=== PATIENT | female | born 1950 | race Hispanic/Latino ===

== ENCOUNTER 2024-09-04 12:05 | Inpatient (IN) | payer MEDICARE ==
[~2024-09-04] VITALS: Ht 149.9 cm; Wt 62.8 kg
[2024-09-04] VITALS (8 sets, daily range): BP systolic 113–139; BP diastolic 45–91; PULSE 74–89; RESP 15–20; TEMP 97.3–98.8; O2SAT 100
[~2024-09-04 12:05] MED LIST: ALENDRONATE SOD70 MG PO; ASPIRIN CHEW81 MG PO; AUGMENTIN 500-1 EACH PO; BENZONATATE100 MG PO; CARVEDILOL3.125 MG PO; CRESTOR10 MG PO; DOXYCYCLINE HY100 MG PO; FUROSEMIDE40 MG PO; GLIMEPIRIDE2 MG PO; NIFEDIPINE ER30 M1 PO; SENTRY SENIOR1 EAC1
[2024-09-04 13:32] LABS: BASOPHILS # (AUTO) 0.1 (0.0-0.1); EOSINOPHILS # (AUTO) 0.1 (0.0-0.4); EOSINOPHILS % 0.8 % (0.0-6.0); HEMATOCRIT 33.8 % (34.2-44.1); HEMOGLOBIN 10.6 g/dL (12.0-16.0); LYMPHOCYTES # (AUTO) 0.8 (1.0-3.2); LYMPHOCYTES % 10.7 % (18.0-39.1); MEAN CORPUSCULAR HEMOGLOBIN 32.8 pg (28-32); MEAN CORPUSCULAR HGB CONC 31.4 g/dL (31-35); MEAN CORPUSCULAR VOLUME 104.6 fL (81-99); MONOCYTES # (AUTO) 0.5 (0.2-0.8); MONOCYTES % 6.7 % (4.4-11.3); NEUTROPHILS # (AUTO) 5.9 (2.1-6.9); NEUTROPHILS % 80.4 % (38.7-80.0); PLATELET COUNT 180 x10e3/uL (140-360); RED BLOOD COUNT 3.23 x10e6/uL (3.6-5.1); RED CELL DISTRIBUTION WIDTH 14.5 % (11.7-14.4); WHITE BLOOD COUNT 7.28 x10e3/uL (4.8-10.8)
[2024-09-04 13:48] LABS: INR 1.06; PROTHROMBIN TIME 14.4 seconds (11.9-14.5)
[2024-09-04 13:49] LABS: PARTIAL THROMBOPLASTIN TIME 28.6 seconds (23.8-35.5)
[2024-09-04 13:58] LABS: ALBUMIN 3.6 g/dL (3.5-5.0); ANION GAP 22.7 mmol/L (8-16); BILIRUBIN,TOTAL 0.8 mg/dL (0.2-1.2); CALCIUM 8.7 mg/dL (8.4-10.2); CREATININE, SERUM 8.13 mg/dL (0.57-1.11); TOTAL PROTEIN 7.3 g/dL (6.5-8.1)
[2024-09-04 14:00] LABS: POTASSIUM 5.7 mmol/L (3.5-5.1)
[2024-09-04 14:07] LABS: TROPONIN I 0.043 ng/mL (0-0.300)
[2024-09-04] MEDS: CALCIUM GLUC 1 G/50 ML NACL 50 ML IV ONE (15:13)
[2024-09-04] MEDS: SODIUM BICARBONATE 8.4% INJ 50 ML SYR IV STA (15:13)
[2024-09-04] MEDS: DEXTROSE 50% SYRINGE 50 ML IV STA (15:13)
[2024-09-04] MEDS ORDERED: Morphine 4mg INJECTION 4 MG/ML INJ IV PRN (15:15)
[2024-09-04] MEDS ORDERED: ONDANSETRON HCL INJ 2MG/ML 2ML 2 MG/ML VIAL IV PRN (15:15)
[2024-09-04] MEDS: INSULIN REGULAR, HUMAN 100 UNIT/1 ML IV ONE (15:16)
[2024-09-04] MEDS ORDERED: MULTI-VITAMIN1 EACH PO (16:58)
[2024-09-04] MEDS: SODIUM CHLORIDE 0.9% 1000ML 2,000 ML ONE (20:01)
[2024-09-04] MEDS ORDERED: HYDROCODONE/APAP 7.5MG-325MG 1 EA TAB PO PRN (23:45)
[2024-09-04] MEDS ORDERED: HYDRALAZINE HCL 20 MG/ML VIAL IV PRN (23:45)
[2024-09-05] VITALS (10 sets, daily range): BP systolic 104–137; BP diastolic 49–57; PULSE 76–88; RESP 16–18; TEMP 97.7–98.8; O2SAT 97–100
[2024-09-05] MEDS: CARVEDILOL 3.125 MG TAB PO SCH (00:08)
[2024-09-05] MEDS: SIMVASTATIN 20 MG TAB PO SCH (00:09)
[2024-09-05] MEDS: NIFEDIPINE CR 30 MG TAB PO SCH (00:09)
[2024-09-05 07:00] LABS: BASOPHILS # (AUTO) 0.1 (0.0-0.1); BASOPHILS % 0.9 % (0.0-1.0); EOSINOPHILS # (AUTO) 0.2 (0.0-0.4); EOSINOPHILS % 2.6 % (0.0-6.0); HEMATOCRIT 29.9 % (34.2-44.1); HEMOGLOBIN 9.4 g/dL (12.0-16.0); LYMPHOCYTES # (AUTO) 1.2 (1.0-3.2); LYMPHOCYTES % 19.8 % (18.0-39.1); MEAN CORPUSCULAR HEMOGLOBIN 32.9 pg (28-32); MEAN CORPUSCULAR HGB CONC 31.4 g/dL (31-35); MEAN CORPUSCULAR VOLUME 104.5 fL (81-99); MONOCYTES # (AUTO) 0.5 (0.2-0.8); MONOCYTES % 8.6 % (4.4-11.3); NEUTROPHILS # (AUTO) 3.9 (2.1-6.9); NEUTROPHILS % 67.8 % (38.7-80.0); PLATELET COUNT 171 x10e3/uL (140-360); RED BLOOD COUNT 2.86 x10e6/uL (3.6-5.1); RED CELL DISTRIBUTION WIDTH 14.5 % (11.7-14.4)
[2024-09-05 07:27] LABS: ALBUMIN 3.1 g/dL (3.5-5.0); ALBUMIN/GLOBULIN RATIO 0.9 (0.8-2.0); ANION GAP 15.2 mmol/L (8-16); BILIRUBIN,TOTAL 0.7 mg/dL (0.2-1.2); CALCIUM 8.7 mg/dL (8.4-10.2); CREATININE, SERUM 4.94 mg/dL (0.57-1.11); POTASSIUM 4.2 mmol/L (3.5-5.1); TOTAL PROTEIN 6.5 g/dL (6.5-8.1)
[2024-09-05 07:58] LABS: TROPONIN I 0.079 ng/mL (0-0.300)
[2024-09-05] MEDS: ASPIRIN 81 MG CHEW TAB PO SCH (09:00)
[2024-09-05] MEDS: FUROSEMIDE 40 MG TAB PO SCH (09:00)
[2024-09-05] MEDS: MULTIVITAMINS/MINERALS TAB PO SCH (09:38)
[2024-09-05] MEDS ORDERED: SODIUM CHLORIDE 0.9% 1000ML 2,000 ML IV PRN (11:00)
[2024-09-05] MEDS ORDERED: ALBUMIN 25% 12.5GM 0.25 GM/ML BTL IV PRN (11:30)
[2024-09-05] MEDS: SEVELAMER CARBONATE 800 MG TAB PO SCH (12:10)
[2024-09-05] MEDS: LIDOCAINE 4% PATCH TP SCH (12:10)
[2024-09-05 17:18] LABS: TROPONIN I 0.035 ng/mL (0-0.300)
[2024-09-05] MEDS: SODIUM CHLORIDE 0.9% 1000ML 1,000 ML ONE (19:58)
[2024-09-05] MEDS: ALBUMIN 25% 12.5GM 50ML 50 ML IV ONE (19:58)
[2024-09-06] VITALS (9 sets, daily range): BP systolic 130–164; BP diastolic 49–63; PULSE 81–87; RESP 16–20; TEMP 97–98.2; O2SAT 96–100
[2024-09-06 07:31] LABS: HEPATITIS B CORE AB TOTAL Negative; HEPATITIS B SURFACE AG (P) Negative
[2024-09-06] MEDS: ACETAMINOPHEN 325 MG TAB PO PRN (22:03)
[2024-09-07] VITALS (10 sets, daily range): BP systolic 137–171; BP diastolic 52–65; PULSE 75–85; RESP 16–18; TEMP 97.4–98.1; O2SAT 96–100
[2024-09-07 10:24] LABS: ALBUMIN 3.5 g/dL (3.5-5.0); ANION GAP 18.2 mmol/L (8-16); BILIRUBIN,TOTAL 0.5 mg/dL (0.2-1.2); CALCIUM 8.8 mg/dL (8.4-10.2); CREATININE, SERUM 5.64 mg/dL (0.57-1.11); POTASSIUM 4.2 mmol/L (3.5-5.1); TOTAL PROTEIN 6.9 g/dL (6.5-8.1)
[2024-09-07] MEDS ORDERED: IRON SUCROSE 0 ML IV ONE (14:00)
[2024-09-07] MEDS: HYDROCODONE/APAP 7.5MG-325MG 1 EA TAB PO PRN (21:28)
[2024-09-08] VITALS: BP 140/49; PULSE 72; RESP 16; TEMP 98.3; O2SAT 100
[2024-09-08 04:00] VITALS: BP 144/75; PULSE 86; RESP 20; TEMP 97.9; O2SAT 98
[2024-09-08 08:44] VITALS: BP 141/51; PULSE 75; RESP 14; RESP 15; TEMP 97.7; O2SAT 100
[2024-09-08 12:57] VITALS: BP 151/56; PULSE 80; RESP 18; TEMP 98.2; O2SAT 100
== END 2024-09-08 14:05 | disposition home or self-care (01) | DRG 640 ==
LOC: ER 12:15 → ERHOLD 15:09 → MED/SURG3 16:25 → OBSVTOIN 09-06 08:14
PROVIDERS: ADMIT Internal Medicine; ATTEND Internal Medicine
PROC: 5A1D70Z Performance of Urinary Filtration, Intermittent, Less than 6 Hours Per Day (ICD-10-PCS; principal; 2024-09-04)
DX: E87.70 Fluid overload, unspecified (principal); N18.6 End stage renal disease; I12.0 Hypertensive chronic kidney disease with stage 5 chronic kidney disease or end stage renal disease; J81.1 Chronic pulmonary edema; N25.81 Secondary hyperparathyroidism of renal origin; E11.22 Type 2 diabetes mellitus with diabetic chronic kidney disease; Z99.2 Dependence on renal dialysis; E11.42 Type 2 diabetes mellitus with diabetic polyneuropathy; E87.5 Hyperkalemia; M51.16 Intervertebral disc disorders with radiculopathy, lumbar region; I25.10 Atherosclerotic heart disease of native coronary artery without angina pectoris; M54.9 Dorsalgia, unspecified; M79.604 Pain in right leg; M79.605 Pain in left leg; M19.90 Unspecified osteoarthritis, unspecified site; M81.0 Age-related osteoporosis without current pathological fracture; Z79.82 Long term (current) use of aspirin; Z79.84 Long term (current) use of oral hypoglycemic drugs
CPT/HCPCS: 36415; 70450; 71045; 72131; 72148; 72192; 80053; 82550; 82948; 83735; 84484; 85025; 85610; 85730; 86704; 86706; 87340; 93005; 94799; 99252; 99284; G0378; J0612; J1756; J7030; J7799

== ENCOUNTER 2024-11-09 03:14 | Emergency (ER) | payer MEDICARE, OTHER ==
[~2024-11-09] VITALS: Ht 149.9 cm; Wt 62.6 kg
[~2024-11-09 03:14] MED LIST changes: +MULTI-VITAMIN1 EACH PO
[2024-11-09 03:20] VITALS: RESP 19; TEMP 99.3
[2024-11-09 05:40] VITALS: PULSE 80
[2024-11-09 06:23] VITALS: BP 151/46; O2SAT 97
== END 2024-11-09 06:24 | disposition home or self-care (01) ==
LOC: ER 03:26
DX: K62.89 Other specified diseases of anus and rectum (principal); S32.491D Other specified fracture of right acetabulum, subsequent encounter for fracture with routine healing; W01.0XXD Fall on same level from slipping, tripping and stumbling without subsequent striking against object, subsequent encounter; I12.0 Hypertensive chronic kidney disease with stage 5 chronic kidney disease or end stage renal disease; E11.22 Type 2 diabetes mellitus with diabetic chronic kidney disease; N18.6 End stage renal disease; Z99.2 Dependence on renal dialysis; I25.10 Atherosclerotic heart disease of native coronary artery without angina pectoris; M81.0 Age-related osteoporosis without current pathological fracture
CPT/HCPCS: 74018; 99284

== ENCOUNTER 2025-01-22 11:03 | Inpatient (IN) | payer MEDICARE, OTHER ==
[2025-01-22] VITALS (8 sets, daily range): BP systolic 122–156; BP diastolic 57–60; PULSE 78–87; RESP 18–20; TEMP 97.5–98.6; O2SAT 100
[~2025-01-22] VITALS: Ht 144.8 cm; Wt 62.6 kg
[2025-01-22 11:48] LABS: BASOPHILS # (AUTO) 0.1 (0.0-0.1); BASOPHILS % 0.8 % (0.0-1.0); EOSINOPHILS # (AUTO) 0.1 (0.0-0.4); EOSINOPHILS % 1.8 % (0.0-6.0); HEMATOCRIT 31.9 % (34.2-44.1); HEMOGLOBIN 10.5 g/dL (12.0-16.0); LYMPHOCYTES # (AUTO) 1.5 (1.0-3.2); LYMPHOCYTES % 20.1 % (18.0-39.1); MEAN CORPUSCULAR HEMOGLOBIN 32.2 pg (28-32); MEAN CORPUSCULAR HGB CONC 32.9 g/dL (31-35); MEAN CORPUSCULAR VOLUME 97.9 fL (81-99); MONOCYTES # (AUTO) 0.5 (0.2-0.8); MONOCYTES % 6.3 % (4.4-11.3); NEUTROPHILS # (AUTO) 5.4 (2.1-6.9); NEUTROPHILS % 70.6 % (38.7-80.0); PLATELET COUNT 157 x10e3/uL (140-360); RED BLOOD COUNT 3.26 x10e6/uL (3.6-5.1); RED CELL DISTRIBUTION WIDTH 15.1 % (11.7-14.4); WHITE BLOOD COUNT 7.65 x10e3/uL (4.8-10.8)
[2025-01-22 12:07] LABS: INR 0.97; PROTHROMBIN TIME 13.5 seconds (11.9-14.5)
[2025-01-22 12:08] LABS: PARTIAL THROMBOPLASTIN TIME 29.7 seconds (23.8-35.5)
[2025-01-22 12:10] LABS: CORONAVIRUS COVID-19 AG NEGATIVE (NEGATIVE); INFLUENZA A AG NEGATIVE (NEGATIVE); INFLUENZA B AG NEGATIVE (NEGATIVE)
[2025-01-22 12:16] LABS: ALBUMIN 3.8 g/dL (3.5-5.0); ALBUMIN/GLOBULIN RATIO 1.1 (0.8-2.0); ANION GAP 19.8 mmol/L (8-16); BILIRUBIN,TOTAL 0.8 mg/dL (0.2-1.2); CALCIUM 8.6 mg/dL (8.4-10.2); CREATININE, SERUM 6.3 mg/dL (0.57-1.11); POTASSIUM 4.8 mmol/L (3.5-5.1); TOTAL PROTEIN 7.2 g/dL (6.5-8.1)
[2025-01-22 13:22] LABS: TROPONIN I 0.033 ng/mL (0-0.300)
[2025-01-22] MEDS ORDERED: ONDANSETRON HCL INJ 2MG/ML 2ML 2 MG/ML VIAL IV PRN (15:00)
[2025-01-22] MEDS: SODIUM CHLORIDE 0.9% 1000ML 0 ML ONE (18:46)
[2025-01-22] MEDS: SODIUM CHLORIDE 0.9% 250ML 250 ML ONE (18:47)
[2025-01-22] MEDS ORDERED: TYLENOL325 MG PO (21:15)
[2025-01-22] MEDS: ACETAMINOPHEN 325 MG TAB PO PRN (22:27)
[2025-01-23] VITALS (7 sets, daily range): BP systolic 111–187; BP diastolic 54–67; PULSE 75–96; RESP 17–20; TEMP 97.5–98.1; O2SAT 95–100
[2025-01-23 06:21] LABS: BASOPHILS # (AUTO) 0.1 (0.0-0.1); EOSINOPHILS # (AUTO) 0.2 (0.0-0.4); EOSINOPHILS % 2.7 % (0.0-6.0); HEMATOCRIT 29.7 % (34.2-44.1); HEMOGLOBIN 9.8 g/dL (12.0-16.0); LYMPHOCYTES # (AUTO) 1.4 (1.0-3.2); LYMPHOCYTES % 24.3 % (18.0-39.1); MEAN CORPUSCULAR HEMOGLOBIN 32.6 pg (28-32); MEAN CORPUSCULAR VOLUME 98.7 fL (81-99); MONOCYTES # (AUTO) 0.4 (0.2-0.8); MONOCYTES % 7.5 % (4.4-11.3); NEUTROPHILS # (AUTO) 3.8 (2.1-6.9); NEUTROPHILS % 64.2 % (38.7-80.0); PLATELET COUNT 153 x10e3/uL (140-360); RED BLOOD COUNT 3.01 x10e6/uL (3.6-5.1); WHITE BLOOD COUNT 5.89 x10e3/uL (4.8-10.8)
[2025-01-23 06:49] LABS: ALBUMIN 3.4 g/dL (3.5-5.0); ANION GAP 16.3 mmol/L (8-16); BILIRUBIN,TOTAL 0.5 mg/dL (0.2-1.2); CALCIUM 8.4 mg/dL (8.4-10.2); CREATININE, SERUM 4.8 mg/dL (0.57-1.11); POTASSIUM 4.3 mmol/L (3.5-5.1); TOTAL PROTEIN 6.8 g/dL (6.5-8.1)
[2025-01-23 07:22] LABS: TROPONIN I 0.027 ng/mL (0-0.300)
[2025-01-23] MEDS ORDERED: GLIMEPIRIDE1 MG PO (08:20)
[2025-01-23] MEDS ORDERED: MANNITOL 25% 12.5GM/50 ML VIAL IV PRN (11:00)
[2025-01-23] MEDS: SODIUM CHLORIDE 0.9% 1000ML 2,000 ML ONE (11:02)
[2025-01-23 13:11] LABS: TROPONIN I 0.034 ng/mL (0-0.300)
[2025-01-23] MEDS: BENZONATATE 100 MG CAP PO SCH (17:37)
[2025-01-23] MEDS: NIFEDIPINE CR 30 MG TAB PO SCH (17:38)
[2025-01-23] MEDS: CARVEDILOL 3.125 MG TAB PO SCH (17:43)
[2025-01-23] MEDS: ALBUMIN 25% 12.5GM 0.25 GM/ML BTL IV PRN (17:52)
[2025-01-23 18:11] LABS: TROPONIN I 0.022 ng/mL (0-0.300)
[2025-01-24] VITALS (7 sets, daily range): BP systolic 131–162; BP diastolic 53–69; PULSE 73–87; RESP 17–18; TEMP 97–98.7; O2SAT 100
[2025-01-24 05:16] LABS: HEPATITIS B CORE AB TOTAL Negative; HEPATITIS B SURFACE AB QUANT 18.1; HEPATITIS B SURFACE AG (P) Negative
[2025-01-24 06:30] LABS: BASOPHILS # (AUTO) 0.1 (0.0-0.1); BASOPHILS % 1.1 % (0.0-1.0); EOSINOPHILS # (AUTO) 0.2 (0.0-0.4); EOSINOPHILS % 2.5 % (0.0-6.0); HEMATOCRIT 32.5 % (34.2-44.1); HEMOGLOBIN 10.8 g/dL (12.0-16.0); LYMPHOCYTES # (AUTO) 1.4 (1.0-3.2); LYMPHOCYTES % 20.1 % (18.0-39.1); MEAN CORPUSCULAR HEMOGLOBIN 32.7 pg (28-32); MEAN CORPUSCULAR HGB CONC 33.2 g/dL (31-35); MEAN CORPUSCULAR VOLUME 98.5 fL (81-99); MONOCYTES # (AUTO) 0.6 (0.2-0.8); MONOCYTES % 8.1 % (4.4-11.3); NEUTROPHILS # (AUTO) 4.8 (2.1-6.9); NEUTROPHILS % 67.9 % (38.7-80.0); PLATELET COUNT 161 x10e3/uL (140-360); RED CELL DISTRIBUTION WIDTH 14.7 % (11.7-14.4); WHITE BLOOD COUNT 7.06 x10e3/uL (4.8-10.8)
[2025-01-24 07:01] LABS: ANION GAP 19.2 mmol/L (8-16); CALCIUM 9.2 mg/dL (8.4-10.2); CREATININE, SERUM 3.48 mg/dL (0.57-1.11); POTASSIUM 4.2 mmol/L (3.5-5.1)
[2025-01-24] MEDS: ASPIRIN 81 MG CHEW TAB PO SCH (10:00)
[2025-01-24] MEDS: FUROSEMIDE 40 MG TAB PO SCH (10:08)
[2025-01-25] VITALS: BP 104/57; PULSE 71; RESP 18; TEMP 97.8; O2SAT 100
[2025-01-25 04:00] VITALS: BP 133/50; PULSE 73; RESP 18; TEMP 97.7; O2SAT 100
[2025-01-25] MEDS ORDERED: SODIUM CHLORIDE 0.9% 1000ML 1,000 ML ONE (08:21)
[2025-01-25 09:00] VITALS: BP 121/51; PULSE 78; RESP 18; TEMP 97.7; O2SAT 100
[2025-01-25 09:47] VITALS: BP 121/51; PULSE 78; RESP 18; TEMP 97.7; O2SAT 100
[2025-01-25] MEDS ORDERED: SODIUM CHLORIDE 0.9% 1000ML 2,000 ML IV PRN (11:45)
[2025-01-25 14:58] VITALS: BP 104/44; PULSE 67; RESP 18; TEMP 97.3
[2025-01-25 15:12] VITALS: BP 123/51; PULSE 85; RESP 18; TEMP 97.8; O2SAT 98
== END 2025-01-25 15:15 | disposition home or self-care (01) | DRG 291 ==
LOC: ER 11:30 → ERHOLD 15:00 → MED/SURG3 15:55 → OBSVTOIN 01-23 10:15
PROVIDERS: ADMIT Internal Medicine; ATTEND Internal Medicine
PROC: 5A1D70Z Performance of Urinary Filtration, Intermittent, Less than 6 Hours Per Day (ICD-10-PCS; principal; 2025-01-22)
DX: I13.2 Hypertensive heart and chronic kidney disease with heart failure and with stage 5 chronic kidney disease, or end stage renal disease (principal); I50.33 Acute on chronic diastolic (congestive) heart failure; J18.9 Pneumonia, unspecified organism; E11.22 Type 2 diabetes mellitus with diabetic chronic kidney disease; N18.6 End stage renal disease; J81.1 Chronic pulmonary edema; E87.70 Fluid overload, unspecified; Z99.2 Dependence on renal dialysis; I16.0 Hypertensive urgency; Z11.52 Encounter for screening for COVID-19; I25.10 Atherosclerotic heart disease of native coronary artery without angina pectoris; Z79.82 Long term (current) use of aspirin; Z90.49 Acquired absence of other specified parts of digestive tract; M81.0 Age-related osteoporosis without current pathological fracture; Z91.041 Radiographic dye allergy status
CPT/HCPCS: 36415; 71045; 80048; 80053; 82550; 82948; 83036; 83735; 84443; 84484; 85025; 85610; 85730; 86704; 86706; 87340; 90962; 93005; 99284; G0378; J0696; J7030; J7050

== ENCOUNTER 2025-01-31 09:13 | Observation (INO) | payer MEDICAID, MEDICARE ==
[~2025-01-31] VITALS: Ht 149.9 cm; Wt 56.2 kg
[~2025-01-31 09:13] MED LIST changes: +GLIMEPIRIDE1 MG PO; +TYLENOL325 MG PO
[2025-01-31 09:20] VITALS: TEMP 97.9
[2025-01-31] MEDS: HYDROCODONE/APAP 5MG-325MG TAB PO ONE (10:18)
[2025-01-31 10:25] LABS: BASOPHILS # (AUTO) 0.1 (0.0-0.1); BASOPHILS % 1.2 % (0.0-1.0); EOSINOPHILS # (AUTO) 0.2 (0.0-0.4); EOSINOPHILS % 2.3 % (0.0-6.0); HEMATOCRIT 33.5 % (34.2-44.1); HEMOGLOBIN 11.1 g/dL (12.0-16.0); LYMPHOCYTES % 27.8 % (18.0-39.1); MEAN CORPUSCULAR HEMOGLOBIN 32.2 pg (28-32); MEAN CORPUSCULAR HGB CONC 33.1 g/dL (31-35); MEAN CORPUSCULAR VOLUME 97.1 fL (81-99); MONOCYTES # (AUTO) 0.4 (0.2-0.8); MONOCYTES % 5.4 % (4.4-11.3); NEUTROPHILS # (AUTO) 4.6 (2.1-6.9); NEUTROPHILS % 62.9 % (38.7-80.0); PLATELET COUNT 183 x10e3/uL (140-360); RED BLOOD COUNT 3.45 x10e6/uL (3.6-5.1); RED CELL DISTRIBUTION WIDTH 14.9 % (11.7-14.4); WHITE BLOOD COUNT 7.34 x10e3/uL (4.8-10.8)
[2025-01-31 11:03] LABS: INR 0.99; PROTHROMBIN TIME 13.7 seconds (11.9-14.5)
[2025-01-31 11:04] LABS: PARTIAL THROMBOPLASTIN TIME 31.3 seconds (23.8-35.5)
[2025-01-31 11:11] LABS: ALBUMIN 4.3 g/dL (3.5-5.0); ALBUMIN/GLOBULIN RATIO 1.2 (0.8-2.0); BILIRUBIN,TOTAL 0.3 mg/dL (0.2-1.2); CALCIUM 8.9 mg/dL (8.4-10.2); CREATININE, SERUM 8.99 mg/dL (0.57-1.11)
[2025-01-31] MEDS ORDERED: SODIUM CHLORIDE FLUSH 10 ML SYR INJ PRN (11:45)
[2025-01-31] MEDS ORDERED: ONDANSETRON HCL INJ 2MG/ML 2ML 2 MG/ML VIAL IV PRN (11:45)
[2025-01-31] MEDS: DEXTROSE 50% SYRINGE 50 ML IV STA (11:53)
[2025-01-31] MEDS: SODIUM BICARBONATE 8.4% INJ 50 ML SYR IV STA (11:54)
[2025-01-31] MEDS: INSULIN REGULAR, HUMAN 100 UNIT/1 ML IV ONE (11:56)
[2025-01-31] MEDS: CALCIUM GLUC 1 G/50 ML NACL 50 ML IV SCH (12:23)
[2025-01-31 12:30] VITALS: PULSE 82; RESP 15
[2025-01-31] MEDS: ALBUTEROL SULF 0.083% NEB SOLN 3 ML NEB NEB STA (12:36)
[2025-01-31 13:16] VITALS: BP 172/69; PULSE 85; RESP 22; TEMP 97.9; O2SAT 99
[2025-01-31 16:01] VITALS: BP 156/56; PULSE 83; RESP 18; TEMP 97.3; O2SAT 100
[2025-01-31] MEDS: SODIUM CHLORIDE 0.9% 1000ML 1,000 ML ONE (18:01)
[2025-01-31] MEDS ORDERED: ALBUMIN 25% 12.5GM 0.25 GM/ML BTL IV PRN (18:30)
[2025-01-31] MEDS ORDERED: SODIUM CHLORIDE 0.9% 250ML 250 ML IV PRN (18:30)
[2025-01-31] MEDS ORDERED: SODIUM CHLORIDE 0.9% 1000ML 2,000 ML IV PRN (18:30)
[2025-01-31 20:00] VITALS: BP 135/57; PULSE 75; RESP 17; TEMP 97.4; O2SAT 100
[2025-01-31 21:00] VITALS: BP 135/57; PULSE 75; RESP 18; TEMP 97.4; O2SAT 100
[2025-02-01] VITALS: BP 165/65; PULSE 88; RESP 17; TEMP 98.1; O2SAT 100
[2025-02-01 04:00] VITALS: BP 170/65; PULSE 82; RESP 18; TEMP 98; O2SAT 100
[2025-02-01 06:51] LABS: BASOPHILS # (AUTO) 0.1 (0.0-0.1); BASOPHILS % 1.2 % (0.0-1.0); EOSINOPHILS # (AUTO) 0.2 (0.0-0.4); EOSINOPHILS % 2.8 % (0.0-6.0); HEMATOCRIT 31.7 % (34.2-44.1); HEMOGLOBIN 10.7 g/dL (12.0-16.0); LYMPHOCYTES # (AUTO) 1.6 (1.0-3.2); LYMPHOCYTES % 28.2 % (18.0-39.1); MEAN CORPUSCULAR HEMOGLOBIN 32.6 pg (28-32); MEAN CORPUSCULAR HGB CONC 33.8 g/dL (31-35); MEAN CORPUSCULAR VOLUME 96.6 fL (81-99); MONOCYTES # (AUTO) 0.5 (0.2-0.8); MONOCYTES % 8.3 % (4.4-11.3); NEUTROPHILS # (AUTO) 3.4 (2.1-6.9); NEUTROPHILS % 59.3 % (38.7-80.0); PLATELET COUNT 181 x10e3/uL (140-360); RED BLOOD COUNT 3.28 x10e6/uL (3.6-5.1); RED CELL DISTRIBUTION WIDTH 15.3 % (11.7-14.4); WHITE BLOOD COUNT 5.77 x10e3/uL (4.8-10.8)
[2025-02-01 07:19] LABS: ALBUMIN 3.7 g/dL (3.5-5.0); ALBUMIN/GLOBULIN RATIO 1.1 (0.8-2.0); ANION GAP 17.8 mmol/L (8-16); BILIRUBIN,TOTAL 0.3 mg/dL (0.2-1.2); CALCIUM 8.8 mg/dL (8.4-10.2); CREATININE, SERUM 4.48 mg/dL (0.57-1.11); POTASSIUM 4.8 mmol/L (3.5-5.1); TOTAL PROTEIN 7.1 g/dL (6.5-8.1)
[2025-02-01 08:30] VITALS: BP 193/72; PULSE 107; RESP 20; TEMP 98; O2SAT 100
[2025-02-01 09:42] VITALS: BP 193/72; PULSE 107; RESP 20; TEMP 98; O2SAT 100
[2025-02-01] MEDS: NIFEDIPINE CR 30 MG TAB PO SCH (11:15)
[2025-02-01] MEDS ORDERED: ACETAMINOPHEN 325 MG TAB PO PRN (11:15)
[2025-02-01 12:44] VITALS: BP 174/64; PULSE 69; RESP 18; TEMP 97.7; O2SAT 100
[2025-02-01] MEDS ORDERED: ONDANSETRON HCL 4 MG ORAL DISINTEGRATING TAB PO PRN (12:45)
[2025-02-01 16:16] VITALS: BP 170/61; PULSE 86
[2025-02-01] MEDS: CARVEDILOL 3.125 MG TAB PO SCH (16:16)
[2025-02-02] MEDS ORDERED: ASPIRIN 81 MG CHEW TAB PO SCH (09:00)
[2025-02-02] MEDS ORDERED: FUROSEMIDE 40 MG TAB PO SCH (09:00)
== END 2025-02-01 16:28 | disposition home or self-care (01) ==
LOC: ER 09:17 → ERHOLD 11:33 → INTOOBSV 11:33 → MED/SURG3 13:31
PROVIDERS: ADMIT Internal Medicine; ATTEND Internal Medicine
DX: E87.5 Hyperkalemia (principal); T82.590A Other mechanical complication of surgically created arteriovenous fistula, initial encounter; I13.2 Hypertensive heart and chronic kidney disease with heart failure and with stage 5 chronic kidney disease, or end stage renal disease; N18.6 End stage renal disease; I50.9 Heart failure, unspecified; Z99.2 Dependence on renal dialysis; I1A.0 Resistant hypertension
CPT/HCPCS: 36415 ×2; 80053 ×2; 82948 ×2; 85025 ×2; 85610; 85730; 90970 ×2; 93005; 93971; 99284; G0378 ×2; J7030 ×2; J7799